=== PATIENT | male | born 1940 | race Caucasian/White ===

== ENCOUNTER → 2019-01-16 | Outpatient (CLI) | payer MEDICARE ==
[2015-10-12 11:17] VITALS: BP 135/66
[~2019-01-16] MED LIST: FLOMAX 0.40.4 MG/CAP PO; IPRATROPIUM BROM3 M1 IH; LEVAQUIN 750MG750 M1 PO; PREDNISONE10 M1 PO; PULMICORT0.5 MG/2 M IH; SYNTHROID0.1 MG/TAB PO; TIMOLOL 0.5% OP10 ML OU; XALATAN EYE DROPS OU
== END ==
LOC: LAB 17:05
DX: L40.9 Psoriasis, unspecified (principal)

== ENCOUNTER → 2019-01-22 | Outpatient (CLI) | payer MEDICARE ==
[2015-10-12 11:17] VITALS: BP 135/66
[2019-01-22 09:10] LABS: HEMOGLOBIN 15.7 g/dL (13.5-18.0); MEAN CELL VOLUME 99 fl (78-100); MEAN CORPUSCULAR HEMOGLOBIN 32 pg (27-31); MEAN CORPUSCULAR HGB CONC 33 g/dL (33-37); MEAN PLATELET VOLUME 10.4 fl (7.4-10.4); PLATELET COUNT 325 K/mm3 (130-400); RED BLOOD COUNT 4.85 M/mm3 (4.20-5.60); RED CELL DISTRIBUTION WIDTH 14.1 % (11.5-14.5); WHITE BLOOD COUNT 11.4 K/mm3 (4.8-10.8)
[2019-01-22 09:40] LABS: ALBUMIN 4.5 g/dL (3.5-5.0); CALCIUM 9.9 mg/dL (8.4-10.2); POTASSIUM 4.4 mmol/L (3.6-5.0); TOTAL BILIRUBIN 1.1 mg/dL (0.2-1.3); TOTAL PROTEIN 7.7 g/dL (6.3-8.2)
[2019-01-22 13:33] LABS: LYMPHOCYTE 10 % (20-51); MONOCYTE 3 % (3-10); NEUTROPHILS 87 % (42-75)
== END ==
LOC: LAB 08:43 → EDSTATUS 08:45
PROVIDERS: Family Medicine
DX: Z00.00 Encounter for general adult medical examination without abnormal findings (principal); E03.9 Hypothyroidism, unspecified; E55.9 Vitamin D deficiency, unspecified; R73.02 Impaired glucose tolerance (oral)

== ENCOUNTER → 2024-10-24 | Outpatient (CLI) | payer MEDICARE | LOC: RAD 10:33 | DX: J98.4 Other disorders of lung (principal) ==